=== PATIENT | female | born 2000 | race African-American/Black ===

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

== ENCOUNTER 2023-10-23 06:41 | Emergency (ER) | payer MEDICAID ==
[~2023-10-23] VITALS: Ht 172.7 cm; Wt 74.1 kg
[2023-10-23 07:37] VITALS: BP 124/63; PULSE 91; RESP 16; TEMP 98.4; O2SAT 98
[2023-10-23 08:33] LABS: COVID19 ANTIGEN SOFIA FIA NEGATIVE (NEGATIVE)
[2023-10-23 08:34] LABS: Rapid Influenza A Negative (Negative); Rapid Influenza B Negative (Negative)
[2023-10-23] MEDS ORDERED: ACETAMINOPHEN 500 MG TAB PO ONE (08:45)
== END 2023-10-23 08:53 | disposition home or self-care (01) ==
LOC: ER 06:41
DX: J40 Bronchitis, not specified as acute or chronic (principal); R07.89 Other chest pain; Z20.822 Contact with and (suspected) exposure to COVID-19
CPT/HCPCS: 36415; 71045; 87426; 87804

== ENCOUNTER 2024-06-24 09:48 | Emergency (ER) | payer MEDICAID, OTHER ==
[~2024-06-24] VITALS: Ht 172.7 cm; Wt 80.0 kg
[2024-06-24] MEDS: ONDANSETRON ODT 4 MG TAB PO ONE (10:47)
[2024-06-24 10:50] LABS: Basophils # (auto) 0 10 ^3/uL (0-0.2); Basophils % (auto) 0.1 % (0.0-2.0); Eosinophils # (auto) 0 10 ^3/uL (0-0.8); Eosinophils % (auto) 0.5 % (0.0-7.0); Hematocrit 36.3 % (36.0-46.0); Hemoglobin 12.3 g/dL (12.2-16.2); Lymphocytes # (auto) 1.3 10 ^3/uL (0.4-5.4); Lymphocytes % (auto) 13.4 % (10.0-50.0); Mean Corpuscular Hemoglobin 31.3 pg (28.0-32.0); Mean Corpuscular Hgb Conc. 33.9 g/dL (32.0-36.0); Mean Corpuscular Volume 92.4 fL (80.0-100.0); Monocytes # (auto) 0.7 10 ^3/uL (0-1.3); Monocytes % (auto) 7.8 % (0.0-12.0); Neutrophils # (auto) 7.3 10 ^3/uL (1.6-8.6); Neutrophils % (auto) 78.2 % (37.0-80.0); Nucleated Red Blood Cells % 0.1 %; Platelet Count (auto) 317 10^3/uL (140-450); Red Blood Cells 3.93 10^6/uL (4.0-5.20); Red Cell Distribution Width 13.4 % (11.8-14.3); White Blood Cell 9.3 10^3/uL (4.4-10.8)
[2024-06-24 10:58] LABS: Alanine Aminotransferase 20 U/L (7-40); Albumin 4.8 g/dL (3.2-4.8); Alkaline Phosphatase 66 U/L (46-116); Anion Gap 10 (5-15); Aspartate Aminotransferase 17 U/L (13-40); BUN/Creatinine Ratio 7.2 (10.0-20.0); Blood Urea Nitrogen 5 mg/dL (9-23); Calcium 9.9 mg/dL (8.7-10.4); Carbon Dioxide 21 mmol/L (20-31); Chloride 103 mmol/L (98-107); Glucose 97 mg/dL (74-106); Potassium 3.5 mmol/L (3.5-5.1); Sodium 134 mmol/L (136-145)
[2024-06-24 10:59] LABS: Bilirubin, Total 1.2 mg/dL (0.2-1.0)
[2024-06-24 11:08] LABS: Urine Bacteria None Seen /hpf (None Seen)
[2024-06-24 11:25] LABS: Urine Blood Negative /uL (Negative); Urine Clarity Turbid (Clear); Urine Color Light-Orange (Yellow); Urine Mucus FEW (None Seen); Urine Protein, UAD 1+ (Negative); Urine Specific Gravity 1.031 (1.001-1.035); Urine Urobilinogen 3 mg/dL (Negative); Urine WBC 34 /hpf (0 - 5)
[2024-06-24] MEDS: NITROFURANTOIN 100 mg CAP PO ONE (11:51)
[2024-06-24] MEDS ORDERED: ZOFR4T PO (13:32)
[2024-06-24] MEDS ORDERED: NITR-87 PO (13:32)
[2024-06-24 13:54] VITALS: BP 140/78; PULSE 95; RESP 18; TEMP 98.1; O2SAT 98
== END 2024-06-24 13:56 | disposition home or self-care (01) ==
LOC: ER 09:48
DX: O23.41 Unspecified infection of urinary tract in pregnancy, first trimester (principal); R10.2 Pelvic and perineal pain; O21.8 Other vomiting complicating pregnancy; N39.0 Urinary tract infection, site not specified; Z3A.13 13 weeks gestation of pregnancy
CPT/HCPCS: 36415; 76801; 80053; 81001; 84702; 85025; 99284; Q0162

== ENCOUNTER 2024-11-29 11:48 | Observation (INO) | payer MEDICAID, OTHER ==
[~2024-11-29 11:48] MED LIST: NITR-87 PO; ZOFR4T PO
[2024-11-29 13:30] LABS: Basophils # (auto) 0 10 ^3/uL (0-0.2); Basophils % (auto) 0.2 % (0.0-2.0); Eosinophils # (auto) 0 10 ^3/uL (0-0.8); Eosinophils % (auto) 0.5 % (0.0-7.0); Hematocrit 27.5 % (36.0-46.0); Hemoglobin 9.2 g/dL (12.2-16.2); Lymphocytes % (auto) 12.3 % (10.0-50.0); Mean Corpuscular Hemoglobin 28.5 pg (28.0-32.0); Mean Corpuscular Hgb Conc. 33.5 g/dL (32.0-36.0); Mean Corpuscular Volume 85.2 fL (80.0-100.0); Monocytes # (auto) 0.7 10 ^3/uL (0-1.3); Monocytes % (auto) 8.7 % (0.0-12.0); Neutrophils # (auto) 6.3 10 ^3/uL (1.6-8.6); Neutrophils % (auto) 78.3 % (37.0-80.0); Platelet Count (auto) 230 10^3/uL (140-450); Red Blood Cells 3.23 10^6/uL (4.0-5.20); Red Cell Distribution Width 14.1 % (11.8-14.3)
--- NOTE | 2024-11-29 13:34 | DVH ---
BIOPHYSICAL PROFILE HISTORY: LATE ENTRY TECHNIQUE: Multiple transabdominal real-time grayscale sonographic images through the gravid uterus of the fetus with duplex Doppler color flow and M-mode spectral analysis FINDINGS: BIOPHYSICAL PROFILE: breathing score: 2 movement score: 2 tone score: 2 Quantitative MAGO score: 2 (MAGO: 12.5 Cm.) Total score: 8/8 Single live fetus in cephalic presentation. heart rate 150 beats per minute. Anterior placenta without previa or abruption Biophysical profile score 8/8 corresponding to an NATI of 12/26/24 IMPRESSION: Biophysical profile score: 8/8
[2024-11-29 13:45] LABS: INR 0.97 (0.9-1.15); Partial Thromboplastin Time 28.6 SEC (24.5-34.5); Prothrombin Time 10.3 sec (9.3-11.8)
[2024-11-29] MEDS ORDERED: PREN-96 PO (13:48)
[2024-11-29 13:50] LABS: Alanine Aminotransferase 23 U/L (7-40); Albumin 4.2 g/dL (3.2-4.8); Anion Gap 8 (5-15); Aspartate Aminotransferase 16 U/L (13-40); Calcium 9.2 mg/dL (8.7-10.4); Carbon Dioxide 23 mmol/L (20-31); Glucose 100 mg/dL (74-106); Sodium 138 mmol/L (136-145)
[2024-11-29 13:52] LABS: Alkaline Phosphatase 190 U/L (46-116); BUN/Creatinine Ratio 7.7 (10.0-20.0); Bilirubin, Total 1.8 mg/dL (0.2-1.0); Blood Urea Nitrogen < 5 mg/dL (9-23); Chloride 107 mmol/L (98-107); Cholesterol 272 mg/dL (< 200); Potassium 3.4 mmol/L (3.5-5.1)
[2024-11-29 13:53] LABS: HDL Cholesterol 65 mg/dL (40-59); LDL Cholesterol 190 mg/dL (< 100); Triglycerides 197 mg/dL (< 150)
[2024-11-29 14:40] LABS: Uric Acid 3.7 mg/dL (3.1-7.8)
--- NOTE | 2024-11-29 14:51 | DVHDS2 ---
Physician Discharge Progress N Final Diagnosis: labor check,late entry 36wks Operations or Procedures: Operations or Procedures nst 36wks,sono,refuses vag exam Condition on Discharge: Good Disposition: Home Discharge Instructions: Diet: Regular Activity: No Restrictions, As Tolerated Medications: na Follow Up Care: Specialist: 1w Discharge Statement: "Patient was advised to return to the ER or call 911 if any headaches, dizziness, shortness of breath, chest pain, abdominal pain, bleeding, fevers, or worsening of medical condition. Patient was counseled about treatment plan, medications, possible side effects, patientverbalized understanding. All questions were answered to the best of my ability. This discharge took greater then 30 minutes in planning, reviewing documentation, counseling the patient, and discussing with other team members." Visit Coding OBGYN Date of Service: Nov 29, 2024 Billing Provider: FARIDA MARIA DO DIRECTOR OF AVIATION Common Visit Codes: [id number] INP/OBS CARE (HIGH) DIRECTOR OF AVIATION Procedure Codes: 22775-02- NON-STRESS TEST FARIDA MARIA DO Nov 29, 2024 14:51
--- NOTE | 2024-11-29 20:02 | DVH ---
Procedure: US OB ULTRASOUND COMP GTR 14 WKS 11/29/2024 12:41 PM HISTORY: LATE ENTRY COMPARISON: None TECHNIQUE: Sonogram of the gravid uterus was performed. FINDINGS: Single living intrauterine gestation. Presentation: Cephalic Placenta: Anterior heart rate: 142 bpm MAGO: 12.5 cm Maternal cervix: Not visualized The following measurements were obtained: Biparietal diameter: 9 cm corresponding to 36 weeks and 3 days Head Circumference: 32.2 cm corresponding to 37 weeks and 6 days Abdominal Circumference: 31 cm corresponding to 35 weeks and 0 day Femoral Length: 7 cm corresponding to 36 weeks and 2 days Average Ultrasound Age: 36 weeks and 3 days Estimated Date of Delivery by US: 12/24/2024 Estimated Weight: 2763 g corresponding to 40 th percentile based on LMP dating IMPRESSION: 1. Single currently living intrauterine gestation, as described above. No significant abnormalities a re apparent at this time.
[2024-11-30 07:06] LABS: RPR Non Reactive (Non Reactive)
[2024-11-30 08:07] LABS: Varicella Zoster IgG Antibody Reactive (Non Reactive)
[2024-12-03 10:07] LABS: Treponema Pallidum Ab LC Non Reactive (Non Reactive)
== END 2024-11-29 13:56 | disposition home or self-care (01) ==
LOC: UNDOADMOB 11:48 → LDRP 11:48
PROVIDERS: ADMIT Obstetrics & Gynecology; ATTEND Obstetrics & Gynecology
DX: O62.9 Abnormality of forces of labor, unspecified (principal); Z3A.36 36 weeks gestation of pregnancy; Z79.899 Other long term (current) drug therapy; Z98.890 Other specified postprocedural states; Z86.2 Personal history of diseases of the blood and blood-forming organs and certain disorders involving the immune mechanism
CPT/HCPCS: 36415; 59025; 76805; 76819; 80053; 80061; 83036; 84439; 84443; 84550; 85025; 85610; 85730; 86592; 86703; 86762; 86780; 86787; 86803; 86850; 86900; 86901; 87340; 94760; G0378; 76818

== ENCOUNTER 2024-12-26 09:05 | Observation (INO) | payer MEDICAID ==
[~2024-12-26 09:05] MED LIST changes: +PREN-96 PO
[2024-12-26 09:58] LABS: Fern Testing Negative
--- NOTE | 2024-12-31 14:39 | DVHDS2 ---
Physician Discharge Progress N Final Diagnosis: labor check Operations or Procedures: Operations or Procedures nst,sono Condition on Discharge: Good Disposition: Home Discharge Instructions: Diet: Regular Activity: Light activity Medications: na Follow Up Care: Specialist: 2d Discharge Statement: "Patient was advised to return to the ER or call 911 if any headaches, dizzine ss, shortness of breath, chest pain, abdominal pain, bleeding, fevers, or worsening of medical condition. Patient was counseled about treatment plan, medications, possible side effects, patientverbalized understanding. All questions were answered to the best of my ability. This discharge took greater then 30 minutes in planning, reviewing documentation, counseling the patient, and discussing with other team members." Visit Coding OBGYN Date of Service: Dec 26, 2024 Billing Provider: FARIDA MARIA DO IT SALES REPRESENTATIVE Common Visit Codes: [id number] OBS CARE (HIGH) IT SALES REPRESENTATIVE Procedure Codes: 82920-74- NON-STRESS TEST FARIDA MARIA DO Dec 31, 2024 14:39
== END 2024-12-26 11:10 | disposition home or self-care (01) ==
LOC: LDRP 09:05
PROVIDERS: ADMIT Obstetrics & Gynecology; ATTEND Obstetrics & Gynecology
DX: O62.9 Abnormality of forces of labor, unspecified (principal); O42.913 Preterm premature rupture of membranes, unspecified as to length of time between rupture and onset of labor, third trimester; Z3A.39 39 weeks gestation of pregnancy; Z79.899 Other long term (current) drug therapy; Z98.890 Other specified postprocedural states
CPT/HCPCS: 59025; 81002; 84112; 94760; G0378; Q0114